=== PATIENT | male | born 1985 | race African-American/Black ===

== ENCOUNTER 2017-09-18 20:19 | Emergency (ER) | payer SELFPAY ==
[~2017-09-18] VITALS: Ht 180.3 cm; Wt 91.0 kg
[2017-09-18] MEDS ORDERED: KETOROLAC 30MG/ML VIAL IV STA (20:41)
[2017-09-18] MEDS ORDERED: SODIUM CHLORIDE 0.9% 1,000 ML IV ONE (20:41)
[2017-09-18] MEDS ORDERED: ONDANSETRON 4MG ODT PO STA (20:41)
[2017-09-18 21:00] LABS: CLARITY URINE CLEAR (CLEAR); COLOR URINE DARK YELLOW (YELLOW); KETONES URINE TRACE (NEGATIVE); LEUKOCYTE ESTERASE URINE NEGATIVE (NEGATIVE); NITRITE URINE NEGATIVE (NEGATIVE); OCCULT BLOOD URINE NEGATIVE (NEGATIVE); PH URINE 5.5 (4.5-8.0); PROTEIN URINE NEGATIVE (NEGATIVE); SPECIFIC GRAVITY URINE 1.036 (1.005-1.030)
[2017-09-18 21:03] LABS: HEMATOCRIT. 41.8 % (42.0-52.0); HEMOGLOBIN. 14.4 g/dL (14.0-18.0); MEAN CORPUSCULAR HEMOGLOBIN 33.4 pg (28.0-32.0); MEAN CORPUSCULAR VOLUME 96.8 fL (80.0-94.0); MEAN PLATELET VOLUME 8.8 fl (7.4-10.4); PLATELET 218 x1000/uL (130-400); RED BLOOD CELL COUNT 4.32 mill/uL (4.7-6.1); RED CELL DISTRIBUTION WIDTH 13.1 % (11.6-14.6)
[2017-09-18 21:07] LABS: PROTHROMBIN TIME 10.8 sec (9.4-11.6)
[2017-09-18 21:14] LABS: CARBON DIOXIDE 27 mEq/L (21-32); CHLORIDE 103 mEq/L (98-107)
[2017-09-18 21:22] LABS: PLATELET ESTIMATE NORMAL
[2017-09-18 21:34] LABS: *AMPHETAMINES SCREEN URINE PRESUMTIVE POSITIVE (NEGATIVE); *BARBITURATES SCREEN URINE NEGATIVE (NEGATIVE); *BENZODIAZEPINES SCREEN URINE NEGATIVE (NEGATIVE); *COCAINE SCREEN URINE NEGATIVE (NEGATIVE); CANNABINOID URINE SCREEN PRESUMTIVE POSITIVE (NEGATIVE); METHADONE URINE SCREEN NEGATIVE (NEGATIVE); OPIATES URINE SCREEN NEGATIVE (NEGATIVE); PHENCYCLIDINE URINE SCREEN NEGATIVE (NEGATIVE)
[2017-09-18] MEDS ORDERED: FAMOTIDINE 20MG/2ML VIAL IV STA (21:34)
[2017-09-18] MEDS ORDERED: VISCOUS LIDOCAINE 2% 15 ML UDC PO STA (21:34)
[2017-09-18] MEDS ORDERED: MAGNESIUM/ALUMINUM HYDROXIDE/SIMETHICONE 30ML UDC PO STA (21:34)
[2017-09-18] MEDS ORDERED: DICYCLOMINE 10 MG/5 ML ORAL SYR PO STA (21:34)
[2017-09-18] MEDS ORDERED: METOCLOPRAMIDE HCL 10MG TABLET PO ONE (21:45)
[2017-09-19 07:33] VITALS: BP 99/72
== END 2017-09-19 07:50 | disposition home or self-care (01) ==
LOC: ER 20:27
DX: R10.13 Epigastric pain (principal); R11.0 Nausea; F15.10 Other stimulant abuse, uncomplicated; F12.10 Cannabis abuse, uncomplicated
CPT/HCPCS: 36415; 80053; 80305; 81003; 83690; 85025; 85610; 96361; 96374; 96375; 99285; J1885; J3490; J7030; Q0162; Z7610; J8597